=== PATIENT | female | born 1975 | race Caucasian/White ===

== ENCOUNTER 2020-07-09 02:30 | Outpatient (CLI) | payer MEDICAID, SELFPAY ==
--- NOTE | 2020-07-09 14:55 | DI.US_ITS ---
APPROVED REPORT EXAM: Comprehensive 2D, Doppler, and color-flow Echocardiogram Patient Location: Out-Patient [employer] Driller: Kamilla Humphreys RDCS (AE) Indications: Pre chemo, Left breast cancer Other Information Study Quality: Good Conclusion Left Ventricle : The left ventricle is normal size. The left ventricular systolic function is normal. The left ventricular ejection fraction is within the normal range. There is normal left ventricular wall thickness. There is normal LV segmental wall motion. The left ventricular diastolic function is normal. LVEF is 60-62%. Average GLS is -18.34% Right Ventricle : The right ventricle is normal size. The right ventricular systolic function is norm al. The RVSP is 34.4mmHg. Atria : The left atrium size is normal. The right atrium size is normal. Valves: There are no hemodynamically significant valvular lesions. Great Vessels : The aortic root is normal in size. The ascending aorta is normal in size. Aortic arch is normal in caliber. IVC is normal in size and collapses >50% with inspiration. Please see remainder of study for further details. Wall motion Left Ventricle The left ventricle is normal size. The left ventricular systolic function is normal. The left ventric ular ejection fraction is within the normal range. There is normal left ventricular wall thickness. T here is normal LV segmental wall motion. The left ventricular diastolic function is normal. There is no ventricular septal defect visualized. LVEF is 60-62%. Average GLS is -18.34% Right Ventricle The right ventricle is normal size. The right ventricular systolic function is normal. The RVSP is 34 .4mmHg. Atria The left atrium size is normal. The right atrium size is normal. The interatrial septum is intact wit h no evidence for an atrial septal defect. Aortic Valve The aortic valve is normal in structure. Aortic valve is trileaflet. There is no aortic valvular sten osis. No aortic regurgitation is present. Mitral Valve The mitral valve is normal in structure. No evidence of mitral valve stenosis. Trace to mild mitral r egurgitation. Tricuspid Valve The tricuspid valve is normal in structure. There is no tricuspid valve stenosis. Mild tricuspid regu rgitation. Pulmonic Valve The pulmonary valve is normal in structure. There is no pulmonic valvular stenosis. There is no pulmo comfort valvular regurgitation. Great Vessels The aortic root is normal in size. The ascending aorta is normal in size. Aortic arch is normal in ca liber. IVC is normal in size and collapses >50% with inspiration. Pericardium There is no pericardial effusion. 2D Dimensions IVSD d PLAX 0.85 cm F: 0.6-1.0 LV Vol A2C d MOD 135.4 mL LVPW d PLAX 0.92 cm F: 0.6 - 1.0 LV Vol A4C d MOD 112.2 mL LVID d PLAX 4.58 cm F: 3.8 - 5.2 LA vol/ BSA A2C s A-L 32.2 mL/m2 LVDs 2.90 cm F: 2.2 - 3.5 LA vol/ BSA A4C s A-L 20.3 mL/m2 Ao Root d 2.76 cm F: 2.7 - 3.3 LA Vol/ BSA Biplane s A-L 27.0 mL/m2 RA Area A4C 12.36 cm2 LA Area A4C s MOD 14.74 cm2 RA Vol/ BSA A4C s A-L 14.8 mL/m2 LA Area A2C s MOD 19.60 cm2 Ao Asc Diam d 2.82 cm F: 2.3 - 3.1 LV EF A4C MOD 59.3 % LV EF Teichholz 65.3 % LV EF A2C MOD 62.1 % LVEF (Aggarwal's) 61.15 % F: 54 - 74 LV EF Biplane MOD 61.2 % LV Volume 94.53 mL F: 46 - 106 SV 76.17 mL LV Volume Index 48.97 mL/m2 F: 29 - 61 SV Index 39.43 mL/m2 LV Vol Biplane MOD 124.6 mL FS 35.65 % M-Mode TAPSE 2.20 cm (M/F) >1.7 LV Diastology MV E' medial 0.144 (>0.07 m/s) E/A Ratio 1.8 LV E/e MED 7.40 (<14) MV E Vmax 1.07 (0.4-1.3 m/s) MV E' lateral 0.136 (>0.1 m/s) MV A Vmax 0.60 (0.4-1.3 m/s) LV E/e LAT 7.85 (<14) MV E/A Ratio 1.76 MV E/E' medial 7.43 MV E/E' lateral 7.90 Aortic Valve LVOT Area 2.68 cm2 AoV Area Vmax 1.87 cm2 LVOT Vmax 1.13 m/s AoV Area/ BSA (Vmax) 0.97 cm2/m2 LVOT Mean Dennis. 0.74 m/s GARCIA Mean Dennis. 1.73 cm2 LVOT Peak Grad 5.1 mmHg GARCIA Mean Dennis. Index 0.90 cm2/m2 LVOT Mean Grad 2.6 mmHg LVOT VTI 0.259 m LVOT Diam s 1.80 cm AoV Vmax 1.61 m/s Velocity Ratio 0.70 AoV Mean Dennis. 1.15 m/s AoV Peak Grad 10.4 mmHg LVOT SV 69.43 mL AoV Mean Grad 5.8 mmHg AoV VTI 0.342 m AoV Area VTI 2.03 cm2 AoV Area/ BSA (VTI) 1.05 cm/m2 Mitral Valve MV DT 170 (160-240 msec) MV PHT 49 msec MV Area PHT 4.47 cm2 MV VTI 0.303 m MV VTI Annulus 0.321 m MV Area VTI 2.43 (4.0-6.0 cm2) Pulmonary Valve PV Vmax 1.39 (0.5-1.5 m/s) RVOT Peak Gr. 2.03 mmHg PV Peak Grad 7.7 mmHg RVOT Mean Gr. 1.20 mmHg PV Mean Grad 3.4 mmHg RVOT VTI 0.165 m PV VTI 0.248 m RVOT Vmax 0.71 m/s Tricuspid Valve TR Peak Grad 31.4 mmHg TR Vmax 2.80 m/s RA Pressure 3.00 mmHg RVSP (TR) 34.4 mmHg
== END 2020-07-09 02:50 ==
PROVIDERS: PCP Family Medicine; Visit Provider Internal Medicine Medical Oncology
DX: C50.112 Malignant neoplasm of central portion of left female breast (principal); Z17.1 Estrogen receptor negative status [ER-]; Z01.810 Encounter for preprocedural cardiovascular examination
CPT/HCPCS: 93306

== ENCOUNTER 2020-08-06 07:55 | Outpatient (RCR) | payer MEDICAID, SELFPAY ==
[2020-07-30 11:11] LABS: Abs Immature Grans 0.19 10^3/uL (0.0-0.06); Absolute Basophil Count 0.06 10^3/uL (0.0-0.2); Absolute Eosinophil Count 0.22 10^3/uL (0.0-0.7); Absolute Lymphocyte Count 1.22 10^3/uL (1.2-3.4); Absolute Neutrophil Count 5.06 10^3/uL (1.2-6.7); Basophils % 0.8; HCT 31.1 % (36.0-46.0); HGB 8.9 g/dL (11.2-15.7); Immature Grans % 2.6; Lymphocytes % 16.8; MCH 21.5 pg (27.0-33.0); MCHC 28.6 % (32.0-36.0); MCV 75.1 fL (80-95); MPV 11.5 fL (8.0-11.0); Monocytes % 6.9; Neutrophils % 69.9; Nucleated RBC 0 %; RBC 4.14 10^6/uL (3.93-5.22); RDW 22.5 % (11.7-14.6); RDW-SD 48.2 fL; WBC 7.25 10^3/uL (4.4-10.8)
[2020-07-30 11:21] LABS: ALT 21 U/L (14-59); AST 21 U/L (15-37); Albumin 3.3 g/dL (3.4-5.0); Alkaline Phosphatase 110 U/L (46-116); Anion Gap 8.8 mmol/L (3-11); BUN 7 mg/dL (7-18); Bilirubin, Total 0.2 mg/dL (0.2-1.0); CO2 28.2 mmol/L (21.0-32.0); CREATININE 0.7 mg/dL (0.55-1.02); Calcium 8.7 mg/dL (8.5-10.1); Chloride 106 mmol/L (98-107); Glucose 83 mg/dL (74-106); Potassium 4.1 mmol/L (3.5-5.1); Sodium 143 mmol/L (136-145); Total Protein 7.2 g/dL (6.4-8.2)
[2020-07-30 11:30] LABS: Anisocytosis 3+; Diff Comment Agrees w/ Instrument; Hypochromasia 2+; Platelet Count 189 10^3/uL (130-400); Poikilocytes 1+; Polychromasia Present
[2020-08-06] MEDS: Normal Saline Flush 10 ML SYR IVP (08:38)
[2020-08-06 08:48] LABS: Abs Immature Grans 0.01 10^3/uL (0.0-0.06); Absolute Basophil Count 0.07 10^3/uL (0.0-0.2); Absolute Eosinophil Count 0.07 10^3/uL (0.0-0.7); Absolute Lymphocyte Count 1.13 10^3/uL (1.2-3.4); Absolute Monocyte Count 0.39 10^3/uL (0.1-0.8); Absolute Neutrophil Count 2.15 10^3/uL (1.2-6.7); Basophils % 1.8; Eosinophils % 1.8; HCT 33.7 % (36.0-46.0); HGB 9.6 g/dL (11.2-15.7); Immature Grans % 0.3; Lymphocytes % 29.6; MCH 22.6 pg (27.0-33.0); MCHC 28.5 % (32.0-36.0); MCV 79.5 fL (80-95); MPV 10.3 fL (8.0-11.0); Monocytes % 10.2; Neutrophils % 56.3; Nucleated RBC 0 %; RBC 4.24 10^6/uL (3.93-5.22); RDW 29.3 % (11.7-14.6); RDW-SD 52.9 fL; WBC 3.82 10^3/uL (4.4-10.8)
[2020-08-06 09:08] LABS: ALT 22 U/L (14-59); AST 21 U/L (15-37); Albumin 3.2 g/dL (3.4-5.0); Alkaline Phosphatase 95 U/L (46-116); Anion Gap 5.4 mmol/L (3-11); BUN 5 mg/dL (7-18); Bilirubin, Total 0.2 mg/dL (0.2-1.0); CO2 28.6 mmol/L (21.0-32.0); CREATININE 0.7 mg/dL (0.55-1.02); Calcium 8.6 mg/dL (8.5-10.1); Chloride 107 mmol/L (98-107); Glucose 74 mg/dL (74-106); Potassium 4.1 mmol/L (3.5-5.1); Sodium 141 mmol/L (136-145); Total Protein 6.9 g/dL (6.4-8.2)
[2020-08-06 09:23] LABS: Anisocytosis 3+; Diff Comment Diff Reviewed; Hypochromasia 2+; Platelet Count 452 10^3/uL (130-400)
== END 2020-08-09 23:59 | disposition home or self-care (01) ==
LOC: INF 07:55
PROVIDERS: PCP Family Medicine; Visit Provider Internal Medicine Medical Oncology
DX: C50.112 Malignant neoplasm of central portion of left female breast (principal); Z17.1 Estrogen receptor negative status [ER-]
CPT/HCPCS: 36415; 80053; 85025

== ENCOUNTER 2020-09-03 02:45 | Outpatient (RCR) | payer MEDICAID, SELFPAY ==
[2020-08-20] MEDS: Normal Saline Flush 10 ML SYR IVP (10:30)
[2020-08-20 10:42] LABS: Abs Immature Grans 0.05 10^3/uL (0.0-0.06); Absolute Basophil Count 0.03 10^3/uL (0.0-0.2); Absolute Eosinophil Count 0.22 10^3/uL (0.0-0.7); Absolute Lymphocyte Count 0.77 10^3/uL (1.2-3.4); Absolute Monocyte Count 0.44 10^3/uL (0.1-0.8); Absolute Neutrophil Count 4.71 10^3/uL (1.2-6.7); Basophils % 0.5; Eosinophils % 3.5; HCT 29.8 % (36.0-46.0); HGB 8.9 g/dL (11.2-15.7); Immature Grans % 0.8; Lymphocytes % 12.4; MCH 24.9 pg (27.0-33.0); MCHC 29.9 % (32.0-36.0); MCV 83.2 fL (80-95); MPV 11.4 fL (8.0-11.0); Monocytes % 7.1; Neutrophils % 75.7; Nucleated RBC 0 %; RBC 3.58 10^6/uL (3.93-5.22); RDW 32.2 % (11.7-14.6); WBC 6.22 10^3/uL (4.4-10.8)
[2020-08-20 10:55] LABS: ALT 22 U/L (14-59); AST 16 U/L (15-37); Alkaline Phosphatase 114 U/L (46-116); Anion Gap 6.3 mmol/L (3-11); BUN 5 mg/dL (7-18); Bilirubin, Total 0.2 mg/dL (0.2-1.0); CO2 29.7 mmol/L (21.0-32.0); CREATININE 0.7 mg/dL (0.55-1.02); Calcium 8.5 mg/dL (8.5-10.1); Chloride 108 mmol/L (98-107); Glucose 98 mg/dL (74-106); Potassium 4.3 mmol/L (3.5-5.1); Sodium 144 mmol/L (136-145); Total Protein 6.6 g/dL (6.4-8.2)
[2020-08-20 11:00] LABS: Anisocytosis 3+; Diff Comment Diff Reviewed; Platelet Count 121 10^3/uL (130-400)
[2020-08-20 11:01] LABS: Hypochromasia 2+; Macrocytosis 1+; Microcytosis 1+
[2020-08-20 11:02] LABS: Polychromasia Present
[2020-08-20 11:04] LABS: Poikilocytes 1+
[2020-09-03] MEDS: Normal Saline Flush 10 ML SYR IVP (10:35)
[2020-09-03 10:46] LABS: Abs Immature Grans 0.11 10^3/uL (0.0-0.06); Absolute Basophil Count 0.06 10^3/uL (0.0-0.2); Absolute Eosinophil Count 0.11 10^3/uL (0.0-0.7); Absolute Lymphocyte Count 0.91 10^3/uL (1.2-3.4); Absolute Neutrophil Count 6.56 10^3/uL (1.2-6.7); Basophils % 0.7; Eosinophils % 1.3; HCT 31.7 % (36.0-46.0); HGB 9.6 g/dL (11.2-15.7); Immature Grans % 1.3; Lymphocytes % 10.9; MCH 25.9 pg (27.0-33.0); MCHC 30.3 % (32.0-36.0); MCV 85.4 fL (80-95); MPV 10.7 fL (8.0-11.0); Monocytes % 7.2; Neutrophils % 78.6; Nucleated RBC 0 %; RBC 3.71 10^6/uL (3.93-5.22); WBC 8.35 10^3/uL (4.4-10.8)
[2020-09-03 10:59] LABS: ALT 25 U/L (14-59); AST 18 U/L (15-37); Albumin 3.1 g/dL (3.4-5.0); Alkaline Phosphatase 132 U/L (46-116); BUN 6 mg/dL (7-18); Bilirubin, Total 0.3 mg/dL (0.2-1.0); CREATININE 0.6 mg/dL (0.55-1.02); Calcium 8.5 mg/dL (8.5-10.1); Chloride 107 mmol/L (98-107); Glucose 80 mg/dL (74-106); Potassium 4.1 mmol/L (3.5-5.1); Sodium 144 mmol/L (136-145)
[2020-09-03 11:03] LABS: Anisocytosis 3+; Diff Comment Diff Reviewed; Hypochromasia 1+; Macrocytosis 1+; Microcytosis 1+; Platelet Count 249 10^3/uL (130-400)
[2020-09-03 11:04] LABS: Poikilocytes 1+
== END 2020-09-09 23:59 | disposition home or self-care (01) ==
LOC: INF 02:45
PROVIDERS: Nurse Practitioner Adult Health; PCP Family Medicine; Visit Provider Internal Medicine Medical Oncology
DX: C50.112 Malignant neoplasm of central portion of left female breast (principal); Z17.1 Estrogen receptor negative status [ER-]; Z45.2 Encounter for adjustment and management of vascular access device
CPT/HCPCS: 36591; 80053; 85025

== ENCOUNTER 2020-10-08 09:30 | Outpatient (RCR) | payer MEDICAID, SELFPAY ==
[2020-09-17] MEDS: Normal Saline Flush 10 ML SYR IVP (08:26)
[2020-09-17 08:27] LABS: Abs Immature Grans 0.06 10^3/uL (0.0-0.06); Absolute Basophil Count 0.05 10^3/uL (0.0-0.2); Absolute Lymphocyte Count 0.64 10^3/uL (1.2-3.4); Absolute Monocyte Count 0.56 10^3/uL (0.1-0.8); Absolute Neutrophil Count 5.29 10^3/uL (1.2-6.7); Basophils % 0.7; Eosinophils % 1.5; HCT 31.9 % (36.0-46.0); HGB 9.8 g/dL (11.2-15.7); Immature Grans % 0.9; Lymphocytes % 9.6; MCH 27.5 pg (27.0-33.0); MCHC 30.7 % (32.0-36.0); MCV 89.4 fL (80-95); MPV 10.4 fL (8.0-11.0); Monocytes % 8.4; Neutrophils % 78.9; Nucleated RBC 0 %; Platelet Count 187 10^3/uL (130-400); RBC 3.57 10^6/uL (3.93-5.22)
[2020-09-17 08:42] LABS: ALT 21 U/L (14-59); AST 20 U/L (15-37); Albumin 3.1 g/dL (3.4-5.0); Alkaline Phosphatase 117 U/L (46-116); BUN 7 mg/dL (7-18); Bilirubin, Total 0.3 mg/dL (0.2-1.0); CREATININE 0.7 mg/dL (0.55-1.02); Calcium 8.5 mg/dL (8.5-10.1); Chloride 107 mmol/L (98-107); Glucose 79 mg/dL (74-106); Sodium 142 mmol/L (136-145); Total Protein 6.8 g/dL (6.4-8.2)
[2020-09-17 08:49] LABS: Anisocytosis 3+; Diff Comment Diff Reviewed; Macrocytosis 1+; Microcytosis 2+
[2020-09-17 11:28] LABS: Ferritin 82 ng/mL (8-252)
[2020-10-08] MEDS: Normal Saline Flush 10 ML SYR IVP (09:43)
[2020-10-08 09:55] LABS: Abs Immature Grans 0.02 10^3/uL (0.0-0.06); Absolute Basophil Count 0.06 10^3/uL (0.0-0.2); Absolute Eosinophil Count 0.42 10^3/uL (0.0-0.7); Absolute Lymphocyte Count 0.91 10^3/uL (1.2-3.4); Absolute Monocyte Count 0.44 10^3/uL (0.1-0.8); Absolute Neutrophil Count 2.45 10^3/uL (1.2-6.7); Basophils % 1.4; Eosinophils % 9.8; HCT 35.2 % (36.0-46.0); HGB 10.9 g/dL (11.2-15.7); Immature Grans % 0.5; Lymphocytes % 21.2; MCH 29.1 pg (27.0-33.0); MCV 94.1 fL (80-95); MPV 10.2 fL (8.0-11.0); Monocytes % 10.2; Neutrophils % 56.9; Nucleated RBC 0 %; Platelet Count 227 10^3/uL (130-400); RBC 3.74 10^6/uL (3.93-5.22); RDW 25.8 % (11.7-14.6); RDW-SD 85.6 fL
[2020-10-08 10:15] LABS: Anisocytosis 2+; Diff Comment RBC Morph Reviewed
[2020-10-08 10:16] LABS: Hypochromasia 1+
[2020-10-08 10:19] LABS: ALT 25 U/L (14-59); AST 21 U/L (15-37); Albumin 3.1 g/dL (3.4-5.0); Alkaline Phosphatase 108 U/L (46-116); Anion Gap 6.5 mmol/L (3-11); BUN 6 mg/dL (7-18); Bilirubin, Total 0.3 mg/dL (0.2-1.0); CO2 31.5 mmol/L (21.0-32.0); CREATININE 0.7 mg/dL (0.55-1.02); Chloride 106 mmol/L (98-107); Ferritin 43 ng/mL (8-252); Glucose 90 mg/dL (74-106); Potassium 4.2 mmol/L (3.5-5.1); Sodium 144 mmol/L (136-145); Total Protein 7.1 g/dL (6.4-8.2)
== END 2020-10-09 23:59 | disposition home or self-care (01) ==
LOC: INF 09:30
PROVIDERS: PCP Family Medicine; Visit Provider Nurse Practitioner Adult Health
DX: C50.112 Malignant neoplasm of central portion of left female breast (principal); Z17.1 Estrogen receptor negative status [ER-]; Z45.2 Encounter for adjustment and management of vascular access device; D64.9 Anemia, unspecified
CPT/HCPCS: 36591; 80053; 82728; 85025

== ENCOUNTER 2020-11-05 03:10 | Outpatient (RCR) | payer MEDICAID, SELFPAY ==
[2020-10-22] MEDS: Normal Saline Flush 10 ML SYR IVP (08:25)
[2020-10-22 08:40] LABS: Abs Immature Grans 0.03 10^3/uL (0.0-0.06); Absolute Basophil Count 0.05 10^3/uL (0.0-0.2); Absolute Eosinophil Count 0.61 10^3/uL (0.0-0.7); Absolute Lymphocyte Count 0.97 10^3/uL (1.2-3.4); Absolute Neutrophil Count 5.77 10^3/uL (1.2-6.7); Basophils % 0.6; Eosinophils % 7.7; HCT 37.3 % (36.0-46.0); HGB 11.9 g/dL (11.2-15.7); Immature Grans % 0.4; Lymphocytes % 12.2; MCH 30.7 pg (27.0-33.0); MCHC 31.9 % (32.0-36.0); MCV 96.1 fL (80-95); MPV 11.7 fL (8.0-11.0); Monocytes % 6.3; Neutrophils % 72.8; Nucleated RBC 0 %; RBC 3.88 10^6/uL (3.93-5.22); RDW 20.2 % (11.7-14.6); RDW-SD 74.7 fL; WBC 7.93 10^3/uL (4.4-10.8)
[2020-10-22 08:55] LABS: ALT 24 U/L (14-59); AST 22 U/L (15-37); Albumin 3.2 g/dL (3.4-5.0); Alkaline Phosphatase 128 U/L (46-116); Anisocytosis 2+; BUN 5 mg/dL (7-18); Bilirubin, Total 0.3 mg/dL (0.2-1.0); CREATININE 0.7 mg/dL (0.55-1.02); Calcium 8.8 mg/dL (8.5-10.1); Chloride 106 mmol/L (98-107); Diff Comment Diff Reviewed; Glucose 101 mg/dL (74-106); Microcytosis 1+; Potassium 4.1 mmol/L (3.5-5.1); Sodium 141 mmol/L (136-145)
[2020-10-22 08:56] LABS: Platelet Count 154 10^3/uL (130-400)
[2020-11-05] MEDS: Normal Saline Flush 10 ML SYR IVP (08:41)
[2020-11-05 08:58] LABS: Abs Immature Grans 0.04 10^3/uL (0.0-0.06); Absolute Basophil Count 0.05 10^3/uL (0.0-0.2); Absolute Eosinophil Count 0.26 10^3/uL (0.0-0.7); Absolute Lymphocyte Count 1.03 10^3/uL (1.2-3.4); Absolute Monocyte Count 0.39 10^3/uL (0.1-0.8); Absolute Neutrophil Count 7.43 10^3/uL (1.2-6.7); Basophils % 0.5; Eosinophils % 2.8; HCT 37.4 % (36.0-46.0); HGB 11.7 g/dL (11.2-15.7); Immature Grans % 0.4; Lymphocytes % 11.2; MCH 30.8 pg (27.0-33.0); MCHC 31.3 % (32.0-36.0); MCV 98.4 fL (80-95); MPV 11.8 fL (8.0-11.0); Monocytes % 4.2; Neutrophils % 80.9; Nucleated RBC 0 %; Platelet Count 169 10^3/uL (130-400); RDW 16.4 % (11.7-14.6); RDW-SD 57.7 fL
[2020-11-05 09:11] LABS: ALT 26 U/L (14-59); AST 26 U/L (15-37); Albumin 3.2 g/dL (3.4-5.0); Alkaline Phosphatase 165 U/L (46-116); Anion Gap 6.3 mmol/L (3-11); BUN 5 mg/dL (7-18); Bilirubin, Total 0.3 mg/dL (0.2-1.0); CO2 30.7 mmol/L (21.0-32.0); CREATININE 0.6 mg/dL (0.55-1.02); Calcium 8.8 mg/dL (8.5-10.1); Chloride 105 mmol/L (98-107); Glucose 118 mg/dL (74-106); Sodium 142 mmol/L (136-145)
== END 2020-11-09 23:59 | disposition home or self-care (01) ==
LOC: INF 03:10
PROVIDERS: PCP Family Medicine; Visit Provider Nurse Practitioner Adult Health
DX: C50.112 Malignant neoplasm of central portion of left female breast (principal); Z17.1 Estrogen receptor negative status [ER-]; Z45.2 Encounter for adjustment and management of vascular access device
CPT/HCPCS: 36591; 80053; 85025

== ENCOUNTER 2021-01-07 03:13 | Outpatient (RCR) | payer MEDICAID, SELFPAY ==
[2021-01-07] MEDS: Normal Saline Flush 10 ML SYR IVP (12:56)
[2021-01-07 13:19] LABS: Abs Immature Grans 0.01 10^3/uL (0.0-0.06); Absolute Basophil Count 0.02 10^3/uL (0.0-0.2); Absolute Eosinophil Count 0.23 10^3/uL (0.0-0.7); Absolute Lymphocyte Count 0.98 10^3/uL (1.2-3.4); Basophils % 0.6; Eosinophils % 6.9; HCT 36.8 % (36.0-46.0); HGB 11.3 g/dL (11.2-15.7); Immature Grans % 0.3; Lymphocytes % 29.3; MCH 28.2 pg (27.0-33.0); MCHC 30.7 % (32.0-36.0); MCV 91.8 fL (80-95); MPV 11.5 fL (8.0-11.0); Neutrophils % 53.9; Nucleated RBC 0 %; Platelet Count 135 10^3/uL (130-400); RBC 4.01 10^6/uL (3.93-5.22); RDW 14.6 % (11.7-14.6); RDW-SD 49.1 fL; WBC 3.34 10^3/uL (4.4-10.8)
[2021-01-07 13:36] LABS: ALT 23 U/L (14-59); AST 36 U/L (15-37); Albumin 3.1 g/dL (3.4-5.0); Alkaline Phosphatase 103 U/L (46-116); Anion Gap 4.4 mmol/L (3-11); BUN 4 mg/dL (7-18); Bilirubin, Total 0.3 mg/dL (0.2-1.0); CO2 31.6 mmol/L (21.0-32.0); CREATININE 0.7 mg/dL (0.55-1.02); Calcium 8.6 mg/dL (8.5-10.1); Chloride 106 mmol/L (98-107); Glucose 82 mg/dL (74-106); Potassium 4.1 mmol/L (3.5-5.1); Sodium 142 mmol/L (136-145); Total Protein 7.1 g/dL (6.4-8.2)
[2021-01-08 19:10] LABS: Cancer Ag 15-3 55 U/mL (<30)
== END 2021-01-09 23:59 | disposition home or self-care (01) ==
LOC: INF 03:13
PROVIDERS: PCP Family Medicine; Visit Provider Nurse Practitioner Adult Health
DX: C50.112 Malignant neoplasm of central portion of left female breast (principal); Z45.2 Encounter for adjustment and management of vascular access device; Z17.1 Estrogen receptor negative status [ER-]
CPT/HCPCS: 36591; 80053; 86304; 85025; 86300

== ENCOUNTER 2021-02-04 01:10 | Outpatient (RCR) | payer MEDICAID, SELFPAY ==
[2021-02-04] MEDS: Heparin 500 UNITS/5 ML SYRINGE IV (08:18)
[2021-02-04] MEDS: Normal Saline Flush 10 ML SYR IVP (08:18)
[2021-02-04 08:37] LABS: Abs Immature Grans 0.01 10^3/uL (0.0-0.06); Absolute Basophil Count 0.03 10^3/uL (0.0-0.2); Absolute Eosinophil Count 0.03 10^3/uL (0.0-0.7); Absolute Lymphocyte Count 0.64 10^3/uL (1.2-3.4); Basophils % 2.4; Eosinophils % 2.4; HGB 11.1 g/dL (11.2-15.7); Immature Grans % 0.8; MCH 28.2 pg (27.0-33.0); MCHC 31.7 % (32.0-36.0); MCV 88.8 fL (80-95); MPV 11.5 fL (8.0-11.0); Monocytes % 8.1; Neutrophils % 34.3; Nucleated RBC 0 %; Platelet Count 34 10^3/uL (130-400); RBC 3.94 10^6/uL (3.93-5.22); RDW 15.7 % (11.7-14.6); RDW-SD 47.2 fL
[2021-02-04 08:49] LABS: ALT 20 U/L (14-59); AST 33 U/L (15-37); Albumin 3.1 g/dL (3.4-5.0); Alkaline Phosphatase 98 U/L (46-116); Anion Gap 7.6 mmol/L (3-11); BUN 8 mg/dL (7-18); Bilirubin, Total 0.4 mg/dL (0.2-1.0); CO2 27.4 mmol/L (21.0-32.0); CREATININE 0.7 mg/dL (0.55-1.02); Chloride 108 mmol/L (98-107); Glucose 74 mg/dL (74-106); Potassium 4.2 mmol/L (3.5-5.1); Sodium 143 mmol/L (136-145)
[2021-02-04 09:00] LABS: Absolute Neutrophil Count 0.42 10^3/uL (1.2-6.7); WBC 1.23 10^3/uL (4.4-10.8)
[2021-02-04 09:01] LABS: Diff Comment Diff Reviewed; RBC Morphology Normal
[2021-02-04 17:35] LABS: FSH 3.3 mIU/mL (See Note)
[2021-02-06 09:35] LABS: Cancer Ag 15-3 70 U/mL (<30)
[2021-02-07 16:26] LABS: Estradiol, Mass Spectrometry <10 pg/mL; Estrone <10 pg/mL
== END 2021-02-09 23:59 | disposition home or self-care (01) ==
LOC: INF 01:10
PROVIDERS: PCP Family Medicine; Visit Provider Nurse Practitioner Adult Health
DX: C50.112 Malignant neoplasm of central portion of left female breast (principal); Z45.2 Encounter for adjustment and management of vascular access device; Z17.1 Estrogen receptor negative status [ER-]; Z78.0 Asymptomatic menopausal state
CPT/HCPCS: 36591; 80053; 86304; 82670; 82679; 83001; 85025; 86300

== ENCOUNTER 2021-03-11 02:05 | Outpatient (RCR) | payer MEDICAID, SELFPAY ==
[2021-02-11] MEDS: Normal Saline Flush 10 ML SYR IVP (13:37)
[2021-02-11] MEDS: Heparin 500 UNITS/5 ML SYRINGE IV (13:38)
[2021-02-11 14:09] LABS: Abs Immature Grans 0.01 10^3/uL (0.0-0.06); Absolute Basophil Count 0.06 10^3/uL (0.0-0.2); Absolute Eosinophil Count 0.06 10^3/uL (0.0-0.7); Absolute Lymphocyte Count 0.99 10^3/uL (1.2-3.4); Absolute Monocyte Count 0.23 10^3/uL (0.1-0.8); Absolute Neutrophil Count 0.82 10^3/uL (1.2-6.7); Basophils % 2.8; Eosinophils % 2.8; HCT 36.4 % (36.0-46.0); HGB 11.3 g/dL (11.2-15.7); Immature Grans % 0.5; Lymphocytes % 45.6; MCH 28.2 pg (27.0-33.0); MCV 90.8 fL (80-95); MPV 12.1 fL (8.0-11.0); Monocytes % 10.6; Neutrophils % 37.7; Nucleated RBC 0 %; Platelet Count 117 10^3/uL (130-400); RBC 4.01 10^6/uL (3.93-5.22); RDW 18.5 % (11.7-14.6); RDW-SD 54.6 fL; WBC 2.17 10^3/uL (4.4-10.8)
[2021-02-11 14:33] LABS: Anisocytosis 1+; Diff Comment Agrees w/ Instrument
[2021-02-11 14:34] LABS: ALT 26 U/L (14-59); AST 33 U/L (15-37); Albumin 3.3 g/dL (3.4-5.0); Alkaline Phosphatase 133 U/L (46-116); Anion Gap 6.5 mmol/L (3-11); BUN 7 mg/dL (7-18); Bilirubin, Total 0.2 mg/dL (0.2-1.0); CO2 28.5 mmol/L (21.0-32.0); CREATININE 0.8 mg/dL (0.55-1.02); Calcium 8.6 mg/dL (8.5-10.1); Chloride 108 mmol/L (98-107); Glucose 115 mg/dL (74-106); Potassium 4.2 mmol/L (3.5-5.1); Sodium 143 mmol/L (136-145); Total Protein 7.2 g/dL (6.4-8.2)
[2021-02-11 22:23] LABS: FSH 4.1 mIU/mL (See Note)
[2021-02-12 13:36] LABS: Cancer Ag 15-3 78 U/mL (<30)
[2021-02-13 15:17] LABS: Estradiol, Mass Spectrometry <10 pg/mL; Estrone <10 pg/mL
[2021-03-11] MEDS: Normal Saline Flush 10 ML SYR IVP (10:25)
[2021-03-11] MEDS: Heparin 500 UNITS/5 ML SYRINGE IV (10:25)
[2021-03-11 10:37] LABS: Absolute Monocyte Count 0.11 10^3/uL (0.1-0.8); HGB 10.9 g/dL (11.2-15.7); MCH 29.5 pg (27.0-33.0); MCHC 32.1 % (32.0-36.0); MCV 92.1 fL (80-95); Nucleated RBC 0 %; RBC 3.69 10^6/uL (3.93-5.22); RDW 20.9 % (11.7-14.6); RDW-SD 69.4 fL
[2021-03-11 10:44] LABS: ALT 24 U/L (14-59); AST 44 U/L (15-37); Albumin 2.9 g/dL (3.4-5.0); Alkaline Phosphatase 231 U/L (46-116); Anion Gap 4.1 mmol/L (3-11); BUN 8 mg/dL (7-18); Bilirubin, Total 0.2 mg/dL (0.2-1.0); CO2 29.9 mmol/L (21.0-32.0); CREATININE 0.7 mg/dL (0.55-1.02); Calcium 8.1 mg/dL (8.5-10.1); Chloride 106 mmol/L (98-107); Glucose 87 mg/dL (74-106); Potassium 4.2 mmol/L (3.5-5.1); Sodium 140 mmol/L (136-145); Total Protein 7.2 g/dL (6.4-8.2)
[2021-03-11 11:02] LABS: Absolute Basophil Count 0.05 10^3/uL (0.0-0.2); Absolute Eosinophil Count 0.13 10^3/uL (0.0-0.7); Absolute Lymphocyte Count 0.84 10^3/uL (1.2-3.4); Absolute Neutrophil Count 0.69 10^3/uL (1.2-6.7); Atypical Lymphocytes % 0; Bands % 0; Platelet Count 84 10^3/uL (130-400)
[2021-03-11 11:03] LABS: Diff Comment Manual Differential
[2021-03-11 11:09] LABS: WBC 1.82 10^3/uL (4.4-10.8)
[2021-03-11 11:17] LABS: Anisocytosis 2+
[2021-03-11 22:54] LABS: FSH 7.4 mIU/mL (See Note)
[2021-03-12 17:35] LABS: Cancer Ag 15-3 107 U/mL (<30)
[2021-03-15 17:24] LABS: Estradiol, Mass Spectrometry <10 pg/mL; Estrone <10 pg/mL
== END 2021-03-11 23:59 | disposition home or self-care (01) ==
LOC: INF 02:05
PROVIDERS: Internal Medicine; PCP Family Medicine; Visit Provider Nurse Practitioner Adult Health
DX: C50.912 Malignant neoplasm of unspecified site of left female breast (principal); Z45.2 Encounter for adjustment and management of vascular access device
CPT/HCPCS: 36591; 80053; 86304; 82670; 82679; 83001; 85025; 86300